=== PATIENT | male | born 1955 | race Caucasian/White ===

== ENCOUNTER → 2021-10-02 09:20 | Outpatient (BNVA) | payer OTHER, SELFPAY | PROVIDERS: PCP Nurse Practitioner Family; Referring Provider Nurse Practitioner Family; Visit Provider Surgery | DX: K42.9 Umbilical hernia without obstruction or gangrene (principal) | CPT/HCPCS: 99202 ==

== ENCOUNTER 2021-10-10 09:05 | Day surgery (SDC) | payer OTHER, SELFPAY ==
--- NOTE | 2021-10-08 15:07 | HO.ANESPROP2 ---
Documented by User: Merry Dupont NP 10/08/21 15:08 HPI - Anesthesia Eval Consult details Narrative: 65yo M for Hernia Repair Umbilical with mesh PMFSH Active Problems Active Problems: All Active Problems (Updated 09/06/21 @ 11:00 by Verónica Griffiths PA-C) Umbilical hernia without obstruction or gangrene (Acute) Ventral hernia without obstruction or gangrene (Acute) Past Medical History Medical History No pertinent past medical history Family History Family History Father Lung cancer Mother Lung cancer Surgical History Surgical History H/O ankle fusion History of foot surgery Social History Social History Alcohol intake: never Patient Tobacco Use Status: Former Tobacco user Use of substances other than those prescribed or required for medical reasons: No Have you been hit, kicked, punched, or otherwise hurt by someone within the past year? If so, by whom?: No Are you DNR?: No Advance Directives: No Advance Directives Information Provided: No Advance Directives on File: No Recently lost weight without trying: No Nutrition Risks: No Nutritional Risk Meds Allergies Allergy/AdvReac Type Severity Reaction Status Date / Time penicillin V Allergy Unknown Rash Verified 10/02/21 09:32 Home Medications Medication Instructions Recorded Confirmed Last Taken Type No Known Home Meds 09/06/21 10/02/21 Unknown History Exam Exam Date and Time: October 08, 2021 9857 Assessment and Plan Assessment Anesthesia Assessment: Chart Reviewed Documented by User: Landy Aguilar MD 10/10/21 11:10 PMFSH Active Problems Active Problems: All Active Problems (Updated 09/06/21 @ 11:00 by Verónica Griffiths PA-C) Umbilical hernia without obstruction or gangrene (Acute) Ventral hernia without obstruction or gangrene (Acute) Snores. Never tested for WADE Past Medical History Medical History No pertinent past medical history Family History Family History Father Lung cancer Mother Lung cancer Family history of problems with anesthesia: No Surgical History Surgical History H/O ankle fusion History of foot surgery History of Problems with Anesthesia: No Social History Social History Alcohol intake: never Patient Tobacco Use Status: Former Tobacco user Use of substances other than those prescribed or required for medical reasons: No Have you been hit, kicked, punched, or otherwise hurt by someone within the past year? If so, by whom?: No Are you DNR?: No Advance Directives: No Advance Directives Information Provided: No Advance Directives on File: No Recently lost weight without trying: No Nutrition Risks: No Nutritional Risk Meds Allergies Allergy/AdvReac Type Severity Reaction Status Date / Time penicillin V Allergy Unknown Rash Verified 10/02/21 09:32 Home Medications Medication Instructions Recorded Confirmed Last Taken Type No Known Home Meds 09/06/21 10/02/21 Unknown History Exam Height,Weight and Vital Signs: Height 6 ft Weight 85.729 kg Vital Signs Temp Pulse Resp BP Pulse Ox 10/10/21 09:30 97.6 F 65 8 L 145/78 H 96 Airway Mallampati Class: I TM Dist: >3cm Neck ROM: Full Denture: Upper and Lower Heart: RRR Lungs: CTAB Assessment and Plan Assessment Anesthesia Assessment: Anesthesia Plan Discussed Final Anesthetic Review Family History of Problems with Anesthesia: No History of Problems with Anesthesia: No NPO: Yes ASA Class: I Final Preanesthetic Review: No Changes in Pt Med Stat, Meds/Allgs Chart Reviewed, Consent Obtained/Reviewed and Anes Risks/Benef Reviewed Patient Risk: Low Procedure Risk: Low Assessment/Block/Sedation in SS: Assess/Block/Sedation-SS Anesthetic Plan Anesthetic Plan: GA Disposition: Standard PACU
[2021-10-10 07:37] VITALS: BMI 25.6
[2021-10-10 09:30] VITALS: BP 145/78; PULSE 65; RESP 8; TEMP 36.4; O2SAT 96
[2021-10-10] MEDS: Lactated Ringers 1,000 ML 100 ML IVCONT (09:42)
[2021-10-10] MEDS: vancomycin HCL 1,500 MG in 0.9 % Sodium Chloride 500 ML 333.33 MG IV (09:43)
--- NOTE | 2021-10-10 10:03 | MHC.SHP ---
Pre-Procedural Eval Section A Date of Service: 10/10/21 The patient is an INPATIENT: No Changes since office visit: Yes Patient answered all questions; No Cold of Flu in the past 2 weeks, No New Medical Problems and No Changes in Medication The History & Physical has been completed within 30 days and I have reviewed it.: Yes Section B Chief Complaint: umbilical hernia Allergies: Allergies Allergy/AdvReac Type Severity Reaction Status Date / Time penicillin V Allergy Unknown Rash Verified 10/02/21 09:32 Plan Diagnosis/Plan: Unchanged I have reviewed the history and physical and performed a pertinent physical examination on my patient. No changes have occurred unless specified.
--- NOTE | 2021-10-10 11:13 | P.OP_ITS ---
Operative Note Operative Note Date of Service: 10/10/21 Narrative: Preoperative diagnosis: Umbilical hernia Postoperative diagnosis: Same Procedure: Repair of umbilical hernia Surgeon: Stevie White MD Runstitching Machine Operator: Niurka Eugene PA-C Anesthesia: General LMA Indications for procedure: 65-year-old male patient presenting with a lump in the umbilicus and an area of swelling in the upper midline. He was found to have a small umbilical hernia which is reducible as well as a diastasis recti. He presents today for repair of the umbilical hernia. Operative findings: Umbilical hernia containing preperitoneal fat. Defect measured approximately 1.5 cm in diameter. Specimen: None Estimated blood loss: 2 mL Complications: None Procedure details: Patient was brought to the OR and placed in a supine position. After administering general anesthesia the patient's abdomen was prepped with ChloraPrep and draped in a sterile fashion. A surgical time-out was called the consent confirmed. Patient received preoperative antibiotics and Venodyne boots were in place. Local anesthesia consisting of 0.5% Sensorcaine plain was infiltrated around the umbilicus. A curvilinear incision was made upper portion of the umbilicus in a transverse fashion carried out through subcutaneous tissue. Incision was carried down to the hernia sac. The hernia sac was then dissected down to the fascial edge. The fascial edge was then cleared of the hernia sac and the hernia sac reduced into the abdominal cavity. No bowel was noted within the hernia sac. A preperitoneal space was then dissected around the fascial defect. A 4.6 cm Ventralex mesh was then obtained. This was placed into the preperitoneal space and secured in 4 quadrants using a 1 Tycron suture. Fascia was then closed over the mesh using [id number] 1 Tycron sutures. Wounds were then irrigated with saline solution and suctioned dry. Additional local was infiltrated at this time. Deep subcutaneous tissue was then reapproximated using interrupted 3-0 Polysorb sutures. Dermis was reapproximated using interrupted 3-0 Polysorb sutures. Skin was closed using a running subcuticular 4-0 Polysorb suture. Steri-Strips 2 x 2 gauze and Tegaderm were then applied. The patient tolerated the procedure well. Sponge, instrument, and needle counts reported as correct. The patient was transferred to PACU in stable condition.
[2021-10-10 11:40] VITALS: BP 134/77; PULSE 72; RESP 18; TEMP 36.5; O2SAT 97
[2021-10-10 11:45] VITALS: BP 110/64; PULSE 75; RESP 18; O2SAT 98
[2021-10-10 11:50] VITALS: BP 128/71; PULSE 71; RESP 18; O2SAT 95
[2021-10-10 11:55] VITALS: BP 131/76; PULSE 65; RESP 18; O2SAT 96
[2021-10-10 12:10] VITALS: BP 131/76; PULSE 63; RESP 18; O2SAT 97
== END 2021-10-10 12:52 | disposition home or self-care (01) ==
PROVIDERS: PCP Nurse Practitioner Family; Visit Provider Surgery
PROC: (CPT 49585; principal; 2021-10-10 10:50)
DX: K42.9 Umbilical hernia without obstruction or gangrene (principal); M62.08 Separation of muscle (nontraumatic), other site; Z88.0 Allergy status to penicillin; Z87.891 Personal history of nicotine dependence
CPT/HCPCS: 49585; C1781; J1170; J1885; J2405; J3010; J3370

== ENCOUNTER → 2021-10-18 13:26 | Outpatient (BNVA) | payer OTHER, SELFPAY | PROVIDERS: Visit Provider Surgery | DX: K42.9 Umbilical hernia without obstruction or gangrene (principal); Z87.891 Personal history of nicotine dependence; Z80.1 Family history of malignant neoplasm of trachea, bronchus and lung; Z88.1 Allergy status to other antibiotic agents; Z88.0 Allergy status to penicillin | CPT/HCPCS: 99212 ==

== ENCOUNTER → 2021-11-20 13:20 | Outpatient (BNVA) | payer OTHER, SELFPAY | PROVIDERS: Visit Provider Surgery | DX: Z48.815 Encounter for surgical aftercare following surgery on the digestive system (principal); Z87.19 Personal history of other diseases of the digestive system | CPT/HCPCS: 99212 ==